=== PATIENT | male | born 1975 | race Caucasian/White ===

== ENCOUNTER 2018-07-18 03:14 | Day surgery (SDC) | payer OTHER ==
[~2018-07-18] VITALS: Ht 172.7 cm; Wt 81.9 kg
--- OUTSIDE RECORDS SUMMARY | 2018-07-18 03:23 | XMS REPORT ---
Author Author JOSE VILLALOBOS [facility] Address [address] [place] [address] Care Team Providers Care Director Of Environmental Services Name Role Phone JOSE VILLALOBOS Unavailable PROBLEMS Type Condition ICD9-CM Code [id number] Code Onset Dates Condition Status SNOMED Code Problem Constipation, unspecified constipation type K59.00 Active 26282626 Problem Screening examination for venereal disease V74.5 Active [id number] ALLERGIES No Known Allergies ENCOUNTERS Encounter Location Date Diagnosis [facility] [id number] [place] [phone] May, Right flank pain R10.9 and Constipation, unspecified constipation type K59.00 [facility] [id number] [place] [address] [phone] Sep, Dental examination Z01.20 [facility] [address] [id number] August, Dental examination Z01.20 and Dental caries K02.9 [facility] [id number] [place] [phone] Jul, Dental examination Z01.20 [facility] [id number] [place] [phone] Jul, [facility] [id number] [place] [phone] Jul, [facility] [address] [phone] Nov, [facility] [id number] [place] [phone] Nov, [facility] [address] [phone] Nov, IMMUNIZATIONS No Known Immunizations SOCIAL HISTORY Never Assessed REASON FOR VISIT kidney pain Pt c/o lower back pain which radiates around R side, states has had the pain for a couple of weeks, [facility] Was put on Ranitidine and tylenol yesterday, pt reports worsening of pain, describes as a burning pain MARIA LUZ Ortega PLAN OF CARE Activity Details Follow Up prn Reason: VITAL SIGNS Height 68 in 2017-06-15 Weight 181.2 lbs 2017-06-15 Temperature 97.1 degrees Fahrenheit 2017-06-15 Heart Rate 72 bpm 2017-06-15 Respiratory Rate 20 2017-06-15 BMI 27.55 kg/m2 2017-06-15 Blood pressure systolic 138 mmHg 2017-06-15 Blood pressure diastolic 82 mmHg 2017-06-15 MEDICATIONS Medication Instructions Dosage Frequency Start Date End Date Duration Status Metronidazole 500 mg take 4 tablets by Oral route once 1 time per day for 1 day Nov, Not-Taking Etodolac 500 mg Nov, Active RESULTS Name Result Date Reference Range UA LONG DIP (IN HOUSE) Lot # [id number] Exp date [id number] Clarity clear Color yellow Odor none GLU negative QUENTIN negative KET negative SG 1.025 BLO tr-lysed pH 5.5 Protein negative URO 0.2 NIT negative ROCCO negative Lot # [id number] Exp date 07/2017 Xray : KUB (IN HOUSE) 2017-06-15 PROCEDURES Procedure Date Ordered Result Body Site X-RAY EXAM ABDOMEN 1 VIEW Jun 15, 2017 URINALYSIS, AUTO, W/O SCOPE Jun 15, 2017 INSTRUCTIONS MEDICATIONS ADMINISTERED No Known Medications MEDICAL (GENERAL) HISTORY Type Description Date Medical History back trouble
--- OUTSIDE RECORDS SUMMARY | 2018-07-18 03:24 | XMS REPORT ---
Author HAJA Day Organization [facility] Address [address] [place] [address] Care Team Providers Care Room Service Waiter/Waitress Name Role Phone HAJA SULLIVAN Unavailable PROBLEMS Type Condition ICD9-CM Code RRC98-IY Code Onset Dates Condition Status SNOMED Code Problem Screening examination for venereal disease V74.5 Active [id number] ALLERGIES No Known Allergies SOCIAL HISTORY Never Assessed PLAN OF CARE Activity Details Follow Up prn Reason:hygiene VITAL SIGNS Blood pressure systolic 147 mmHg 2016-08-31 Blood pressure diastolic 90 mmHg 2016-08-31 MEDICATIONS Medication Instructions Dosage Frequency Start Date End Date Duration Status Dalton 5-325 MG Orally every 6 hrs 1 tablet as needed 6h 3 days Active Etodolac 500 mg Nov, Active RESULTS No Results PROCEDURES Procedure Date Ordered Result Body Site LTD ORAL EVALUATION - PROBLEM FOCUS August 31, 2016 EXTRAC ERUPTED TOOTH/EXPOSED ROOT August 31, 2016 IMMUNIZATIONS No Known Immunizations MEDICAL (GENERAL) HISTORY Type Description Date Medical History back trouble
--- OUTSIDE RECORDS SUMMARY | 2018-07-18 03:24 | XMS REPORT ---
Author Author RENATE MCCORD [facility] Address Unknown Care Team Providers Care Personal Financial Advisor Name Role Phone RENATE MCCORD Unavailable PROBLEMS Type Condition ICD9-CM Code ZAE16-BL Code Onset Dates Condition Status SNOMED Code Problem Constipation, unspecified constipation type K59.00 Active 93063444 Problem Screening examination for venereal disease V74.5 Active [id number] ALLERGIES No Known Allergies ENCOUNTERS Encounter Location Date Diagnosis [facility] [id number] [place] [phone] May, Right flank pain R10.9 and Constipation, unspecified constipation type K59.00 [facility] [id number] [place] [phone] Sep, Dental examination Z01.20 [facility] [id number] [place] [phone] August, Dental examination Z01.20 and Dental caries K02.9 [facility] [id number] [place] [phone] Jul, Dental examination Z01.20 [facility] [id number] [place] [phone] Jul, [facility] [id number] [place] [phone] Jul, [facility] [id number] [place] [phone] Nov, [facility] [id number] [place] [phone] Nov, [facility] [id number] [place] [phone] Nov, IMMUNIZATIONS No Known Immunizations SOCIAL HISTORY Never Assessed REASON FOR VISIT melvina PLAN OF CARE Activity Details Follow Up prn Reason:hygiene/filling VITAL SIGNS Blood pressure systolic 132 mmHg 2016-09-28 Blood pressure diastolic 87 mmHg 2016-09-28 MEDICATIONS Medication Instructions Dosage Frequency Start Date End Date Duration Status Etodolac 500 mg Nov, Active RESULTS No Results PROCEDURES Procedure Date Ordered Result Body Site LTD ORAL EVALUATION - PROBLEM FOCUS September 28, 2016 INTRAORL-PERIAPICAL 1 FILM [id number] September 28, 2016 BITEWING - SINGLE FILM September 28, 2016 INSTRUCTIONS MEDICATIONS ADMINISTERED No Known Medications MEDICAL (GENERAL) HISTORY Type Description Date Medical History back trouble
--- OUTSIDE RECORDS SUMMARY | 2018-07-18 03:24 | XMS REPORT ---
Author Author RENATE MCCORD [facility] Address Unknown Care Team Providers Care Re Recording Mixer Name Role Phone RENATE MCCORD Unavailable PROBLEMS Type Condition ICD9-CM Code VTG38-VN Code Onset Dates Condition Status SNOMED Code Problem Screening examination for venereal disease V74.5 Active [id number] ALLERGIES No Known Allergies SOCIAL HISTORY Never Assessed PLAN OF CARE Activity Details Follow Up prn Reason:pt will decide VITAL SIGNS Blood pressure systolic 141 mmHg 2016-08-10 Blood pressure diastolic 93 mmHg 2016-08-10 MEDICATIONS Medication Instructions Dosage Frequency Start Date End Date Duration Status Etodolac 500 mg Nov, Active Amoxicillin 500 MG Orally Three times a day 1 capsule 8h 7 days Active RESULTS No Results PROCEDURES Procedure Date Ordered Result Body Site LTD ORAL EVALUATION - PROBLEM FOCUS August 10, 2016 INTRAORL-PERIAPICAL 1 FILM 46635 August 10, 2016 BITEWING - SINGLE FILM August 10, 2016 IMMUNIZATIONS No Known Immunizations MEDICAL (GENERAL) HISTORY Type Description Date Medical History back trouble
[2018-07-18] MEDS ORDERED: NS IV 1000 ML 1,000 ML ONE (03:49)
[2018-07-18] MEDS ORDERED: NS IV 1000 ML 1,000 ML IV ONE (03:49)
[2018-07-18 03:57] LABS: BASOPHILS # (AUTO) 0.1 10^3/uL (0.0-0.1); BASOPHILS % (AUTO) 1 % (0-10); EOSINOPHILS # (AUTO) 0.3 10^3/uL (0.0-0.3); EOSINOPHILS % (AUTO) 2 % (0-10); HEMATOCRIT 47 % (40-54); HEMOGLOBIN 15.8 G/DL (13.3-17.7); LYMPHOCYTES % (AUTO) 13 % (12-44); MEAN CORPUSCULAR HEMOGLOBIN 29 PG (25-34); MEAN CORPUSCULAR HGB CONC 34 G/DL (32-36); MEAN CORPUSCULAR VOLUME 86 FL (80-99); MEAN PLATELET VOLUME 9.8 FL (7.4-10.4); MONOCYTES # (AUTO) 1.4 X 10^3 (0.0-1.0); MONOCYTES % (AUTO) 10 % (0-12); NEUTROPHILS # (AUTO) 11.4 X 10^3 (1.8-7.8); NEUTROPHILS % (AUTO) 75 % (42-75); PLATELET COUNT 269 10^3/uL (130-400); RED CELL DISTRIBUTION WIDTH 13.9 % (10.0-14.5); WHITE BLOOD COUNT 15.1 10^3/uL (4.3-11.0)
[2018-07-18 03:59] LABS: BILIRUBIN,URINE NEGATIVE (NEGATIVE); CLARITY,URINE CLEAR; COLOR,URINE YELLOW; GLUCOSE, URINE (UA) NEGATIVE (NEGATIVE); KETONES,URINE NEGATIVE (NEGATIVE); LEUKOCYTE ESTERASE ,URINE NEGATIVE (NEGATIVE); NITRITE,URINE NEGATIVE (NEGATIVE); PH,URINE 6 (5-9); PROTEIN,URINE NEGATIVE (NEGATIVE); UROBILINOGEN,URINE NORMAL (NORMAL)
[2018-07-18 04:15] LABS: ALANINE AMINOTRANSFERASE 42 U/L (0-55); ALBUMIN 4.6 GM/DL (3.2-4.5); ALKALINE PHOSPHATASE 83 U/L (40-136); BILIRUBIN,TOTAL 1.2 MG/DL (0.1-1.0); BUN/CREATININE RATIO 24; CARBON DIOXIDE 23 MMOL/L (21-32); CHLORIDE 107 MMOL/L (98-107); CREATININE SERUM 0.85 MG/DL (0.60-1.30); GFR ESTIMATED > 60; GLUCOSE 99 MG/DL (70-105); SODIUM 139 MMOL/L (135-145); TOTAL PROTEIN 7.2 GM/DL (6.4-8.2)
[2018-07-18 04:17] LABS: BACTERIA,URINE NEGATIVE /HPF; SQUAMOUS EPITHELIAL CELL,UR RARE /HPF
[2018-07-18 04:17] LABS: BAND NEUTROPHILS 6 %; EOSINOPHILS % (MANUAL) 2 %; LYMPHOCYTES % (MANUAL) 13 %; MONOCYTES % (MANUAL) 8 %; NEUTROPHILS % (MANUAL) 71 %; RBC MORPH NORMAL
[2018-07-18] MEDS ORDERED: IOHEXOL 350 MG/ML 100 ML (OMNIPAQUE 350) VIAL IV ONE (04:45)
--- NOTE | 2018-07-18 04:51 | ED Abdominal Pain ---
General Chief Complaint: Abdominal/GI Problems Stated Complaint: ABD PAIN Nursing Triage Note: PT AMB TO ROOM #5 W/O DIFFICULTY. A&OX4. C/O RT LOWER ABD DISCOMFORT. PT REPORTS DISCOMFORT BEGAN YESTERDAY MORNING APPROX 1100. REPORTS INCREASE IN DISCOMFORT AFTER EATING OR LAYING ON RT/LT SIDE. DENIES NAUSEA, VOMITING, OR URINARY SYMPTOMS. Sepsis Screen: No Definite Risk Source of Information: Patient Exam Limitations: No Limitations History of Present Illness Date Seen by Provider: Jul 18, 2018 Time Seen by Provider: 03:40 Initial Comments This 43-year-old gentleman presents to the emergency room with point pain and tenderness in the right lower quadrant that started about midmorning yesterday. He has had decreased appetite associated with the pain. Pain was worse after eating, especially supper last night. It does hurt to walk and ride in the car. He denies any urinary changes, nausea, vomiting, diarrhea, or constipation. His bowel movements have been very regular. His last bowel movement was at 18:00 last night. He took some Gas-X at home which was not helpful. He rates his pain as 4-6 out of 10. He is afebrile. Allergies and Home Medications Allergies Coded Allergies: No Known Drug Allergies (Unverified , 07/18/18) Patient Home Medication List Home Medication List Reviewed: Yes Review of Systems Review of Systems Constitutional: no symptoms reported EENTM: No Symptoms Reported Respiratory: No Symptoms Reported Cardiovascular: No Symptoms Reported Gastrointestinal: See HPI Genitourinary: No Symptoms Reported Musculoskeletal: no symptoms reported Skin: no symptoms reported Psychiatric/Neurological: No Symptoms Reported Endocrine: No Symptoms Reported Hematologic/Lymphatic: No Symptoms Reported Past Yddgact-Ugwbgg-Ixnmej Hx Past Med/Social Hx: Reviewed and Corrections made Patient Social History Alcohol Use: Rarely Uses Recreational Drug Use: No Smoking Status: Never a Smoker 2nd Hand Smoke Exposure: No Recent Foreign Travel: No Contact w/Someone Who Travel: No Recent Infectious Disease Expo: No Recent Hopitalizations: No Seasonal Allergies Seasonal Allergies: No Past Medical History Surgeries: Yes Abdominal (colonoscopy), Vasectomy Respiratory: No Cardiac: No Neurological: No Genitourinary: No Musculoskeletal: Yes Chronic Back Pain Endocrine: No HEENT: No Cancer: No Psychosocial: No Integumentary: No Blood Disorders: No Physical Exam Vital Signs Vital Signs - First Documented 07/18/18 03:42 Temp 96.7 Pulse 84 Resp 16 B/P (MAP) 132/102 (112) Pulse Ox 98 O2 Delivery Room Air Capillary Refill : Less Than 3 Seconds Height/Weight/BMI Height: 5'8.00" Weight: 180lbs. oz. 81.999815zm; BMI Method:Stated General Appearance: WD/WN HEENT: PERRL/EOMI, normal ENT inspection Neck: normal inspection Respiratory: lungs clear, normal breath sounds, no respiratory distress, no accessory muscle use Cardiovascular: regular rate, rhythm, no edema, no murmur Gastrointestinal: normal bowel sounds, soft; No distended; guarding; No rebound ; tenderness (point tenderness in the right lower quadrant with positive Rovsing sign) Extremities: normal inspection, no pedal edema Neurologic/Psychiatric: 911 emergency services dispatcher II-XII nml as tested, no motor/sensory deficits, alert, normal mood/affect, oriented x 3 Skin: normal color, warm/dry Progress/Results/Core Measures Results/Orders Lab Results Laboratory Tests Test 07/18/18 03:30 07/18/18 03:53 Range/Units White Blood Count 15.1 H 4.3-11.0 10^3/uL Red Blood Count 5.47 4.35-5.85 10^6/uL Hemoglobin 15.8 13.3-17.7 G/DL Hematocrit 47 40-54 % Mean Corpuscular Volume 86 80-99 FL Mean Corpuscular Hemoglobin 29 25-34 PG Mean Corpuscular Hemoglobin Concent 34 32-36 G/DL Red Cell Distribution Width 13.9 10.0-14.5 % Platelet Count 269 130-400 10^3/uL Mean Platelet Volume 9.8 7.4-10.4 FL Neutrophils (%) (Auto) 75 42-75 % Lymphocytes (%) (Auto) 13 12-44 % Monocytes (%) (Auto) 10 0-12 % Eosinophils (%) (Auto) 2 0-10 % Basophils (%) (Auto) 1 0-10 % Neutrophils # (Auto) 11.4 H 1.8-7.8 X 10^3 Lymphocytes # (Auto) 2.0 1.0-4.0 X 10^3 Monocytes # (Auto) 1.4 H 0.0-1.0 X 10^3 Eosinophils # (Auto) 0.3 0.0-0.3 10^3/uL Basophils # (Auto) 0.1 0.0-0.1 10^3/uL Neutrophils % (Manual) 71 % Lymphocytes % (Manual) 13 % Monocytes % (Manual) 8 % Eosinophils % (Manual) 2 % Band Neutrophils 6 % Blood Morphology Comment NORMAL Sodium Level 139 135-145 MMOL/L Potassium Level 4.0 3.6-5.0 MMOL/L Chloride Level 107 98-107 MMOL/L Carbon Dioxide Level 23 21-32 MMOL/L Anion Gap 9 5-14 MMOL/L Blood Urea Nitrogen 20 H 7-18 MG/DL Creatinine 0.85 0.60-1.30 MG/DL Estimat Glomerular Filtration Rate > 60 BUN/Creatinine Ratio 24 Glucose Level 99 70-105 MG/DL Calcium Level 9.0 8.5-10.1 MG/DL Corrected Calcium 8.5-10.1 MG/DL Total Bilirubin 1.2 H 0.1-1.0 MG/DL Aspartate Amino Transf (AST/SGOT) 19 5-34 U/L Alanine Aminotransferase (ALT/SGPT) 42 0-55 U/L Alkaline Phosphatase 83 40-136 U/L C-Reactive Protein High Sensitivity 0.27 0.00-0.50 MG/DL Total Protein 7.2 6.4-8.2 GM/DL Albumin 4.6 H 3.2-4.5 GM/DL Urine Color YELLOW Urine Clarity CLEAR Urine pH 6 5-9 Urine Specific Ethel 1.020 1.016-1.022 Urine Protein NEGATIVE NEGATIVE Urine Glucose (UA) NEGATIVE NEGATIVE Urine Ketones NEGATIVE NEGATIVE Urine Nitrite NEGATIVE NEGATIVE Urine Bilirubin NEGATIVE NEGATIVE Urine Urobilinogen NORMAL NORMAL MG/DL Urine Leukocyte Esterase NEGATIVE NEGATIVE Urine RBC (Auto) NEGATIVE NEGATIVE Urine RBC NONE /HPF Urine WBC NONE /HPF Urine Squamous Epithelial Cells RARE /HPF Urine Crystals NONE /LPF Urine Bacteria NEGATIVE /HPF Urine Casts NONE /LPF Urine Mucus NEGATIVE /LPF Urine Culture Indicated NO My Orders Orders - DESTIN ARORA MD Saline Lock/Iv-Start (07/18/18 03:49) Ns Iv 1000 Ml (Sodium Chloride 0.9%) (07/18/18 03:49) Cbc With Automated Diff (07/18/18 03:49) Comprehensive Metabolic Panel (07/18/18 03:49) Hs C Reactive Protein (07/18/18 03:49) Ua Culture If Indicated (07/18/18 03:49) Ns Iv 1000 Ml (Sodium Chloride 0.9%) (07/18/18 03:49) Manual Differential (07/18/18 03:30) Ct Abd/Pelv W (Appendicitis) (07/18/18 04:29) Iohexol Injection (Omnipaque 350 Mg/Ml 1 (07/18/18 04:45) Medications Given in ED Current Medications Medications Dose Ordered Sig/Yao Route Start Time Stop Time Status Last Admin Dose Admin Iohexol 100 ml ONCE ONCE IV 07/18/18 04:45 07/18/18 05:29 DC 07/18/18 04:47 100 ML Sodium Chloride 1,000 ml @ 0 mls/hr Q0M ONCE IV 07/18/18 03:49 07/18/18 03:51 DC 07/18/18 03:50 0 MLS/HR Vital Signs/I&O 07/18/18 03:42 Temp 96.7 Pulse 84 Resp 16 B/P (MAP) 132/102 (112) Pulse Ox 98 O2 Delivery Room Air Blood Pressure Mean: 112 Progress Progress Note #1: Time: 04:51 Progress Note Patient was seen and examined. IV fluids are infusing. UA was unremarkable. Leukocytosis was noted on the CBC. CT scan was ordered to assess for possible acute appendicitis. Patient declined pain medication. Progress Note #2: Time: 05:[address] scan revealed acute appendicitis. Case was discussed with Dr. Quinonez. He would like to patient admitted to be worked into the OR schedule. Diagnostic Imaging Diagonstic Imaging: CT Plain Films/CT/US/NM/MRI: abdomen, pelvis Comments CT abdomen and pelvis viewed by me and [employer] report reviewed. Acute uncomplicated appendicitis noted. Departure Communication (Admissions) Time/Spoke to Admitting Phy: 05:20 Dr. Quinonez Impression Primary Impression: Acute appendicitis Qualified Codes: K35.30 - Acute appendicitis with localized peritonitis, without perforation or gangrene Disposition: ADMITTED INPATIENT Condition: Stable Admissions Decision to Admit Reason: Admit from ER (General) Decision to Admit/Date: Jul 18, 2018 Time/Decision to Admit Time: 05:00 Departure-Patient Inst. Referrals: NO,LOCAL PHYSICIAN (PCP/Family) Primary Care Physician DESTIN ARORA MD Jul 18, 2018 04:51
[2018-07-18 06:00] VITALS: BP 142/90
[2018-07-18] MEDS ORDERED: ONDANSETRON 4 MG/2 ML (SDV) Z0FRAN IV PRN (06:45)
[2018-07-18] MEDS ORDERED: fentaNYL INJECTION 100 MCG/2 ML AMP IV PRN (06:45)
[2018-07-18] MEDS ORDERED: CATHETER FLUSH 10 ML SYR IV PRN (06:45)
[2018-07-18] MEDS: NS IV 1000 ML 1,000 ML IV SCH ×2 (06:48→15:15)
[2018-07-18 08:00] VITALS: BP 131/86
[2018-07-18] MEDS ORDERED: FLU QUADRIvalent (5+ YOA) 2018-2019 (AFLURIA) 0.5 ML IM ONE (08:00)
[2018-07-18] MEDS ORDERED: GLYCOPYRROLATE 0.2 MG/ML (ROBINUL) 2 ML VIAL ONE (08:36)
[2018-07-18] MEDS ORDERED: SEVOFLURANE (ULTANE) 15 ML INHAL SOLN ONE (08:36)
[2018-07-18] MEDS ORDERED: proPOfol 200 MG/20 ML (DIPRIVAN) VIAL IV ONE (08:36)
[2018-07-18] MEDS ORDERED: DEXAMETHASONE 10 MG/ML (DECADRON) 1 ML VIAL ONE (08:36)
[2018-07-18] MEDS ORDERED: ROCURONIUM 10 MG/ML 5 ML SYRINGE IV ONE (08:36)
[2018-07-18] MEDS ORDERED: ONDANSETRON 4 MG/2 ML (SDV) Z0FRAN ONE (08:36)
[2018-07-18] MEDS ORDERED: LIDOCAINE PF 2% 5 ML (XYLOCAINE) VIAL ONE (08:36)
[2018-07-18] MEDS ORDERED: NEOSTIGMINE 1 MG/ML 5 ML SYRINGE ONE (08:36)
[2018-07-18] MEDS ORDERED: MIDAZOLAM 2 MG/2 ML (VERSED) VIAL ONE (08:37)
[2018-07-18] MEDS ORDERED: fentaNYL INJECTION 100 MCG/2 ML AMP ONE ×2 (08:37→09:45)
[2018-07-18] MEDS ORDERED: LIDOCAINE/EPI 1%-1:100,000 (XYLOCAINE) 20ML ONE (08:39)
[2018-07-18] MEDS ORDERED: BUPIVACAINE 0.5% 30 ML (SENSORCAINE) VIAL ONE (08:39)
--- NOTE | 2018-07-18 08:52 | Diagnostic Imaging Report ---
INDICATION: Right upper quadrant pain, elevated white count. EXAMINATION: CT abdomen/pelvis with contrast dated 07/18/2018. TECHNIQUE: Multiple contiguous axial images were obtained through the abdomen and pelvis after the administration of intravenous contrast. FINDINGS: The appendix is dilated measuring almost 1 cm in thickness with surrounding inflammatory change noted. No significant free fluid or air is seen with no abscess formation at this time. The remaining bowel loops are unremarkable for acute abnormality. No free fluid in the pelvis. No acute abnormality is seen in the liver or spleen. Fatty infiltration throughout the liver is noted. The adrenal glands, pancreas, and gallbladder are normal in appearance. The kidneys demonstrate no acute abnormality. Tiny cystic change is noted on the left, too small for characterization. The lung bases are unremarkable. No acute osseous abnormality with sclerosis along the sacroiliac joints bilaterally, chronic in appearance. IMPRESSION: 1. Acute appendicitis as discussed with other incidental findings as above. 2. The findings agree with the preliminary report. Dictated by: Dictated on workstation # [id number]
[2018-07-18] MEDS ORDERED: ceFAZolin 2 GM IV Premixed 50 ML ONE (09:02)
--- NOTE | 2018-07-18 09:05 | History & Physical-Surgical ---
History of Present Illness History of Present Illness Reason for visit/HPI Surgery asked to assess pt regarding acute appendicitis. HPI per ED: This 43-year-old gentleman presents to the emergency room with point pain and tenderness in the right lower quadrant that started about midmorning yesterday. He has had decreased appetite associated with the pain. Pain was worse after eating, especially supper last night. It does hurt to walk and ride in the car. He denies any urinary changes, nausea, vomiting, diarrhea, or constipation. His bowel movements have been very regular. His last bowel movement was at 18:00 last night. He took some Gas-X at home which was not helpful. He rates his pain as 4-6 out of 10. He is afebrile. When I spoke with the patient this morning he stated the pain started around 9 or 10 a.m. yesterday morning. He was unable to eat any breakfast but then was a little full dinner but the full dinner made it feel worse. He had some nausea and tried to vomit, he thought that make him feel better but that did not help and he was unable to vomit. He denies ever having pain like this before. He describes the pain as a dull achy pain; with no radiation. He states he came in the emergency room cousin was not getting better. Not eating since last night. Date of Admission Jul 18, 2018 at 05:21 Time Seen by a Provider: 08:41 I consulted on this patient on 07/18/18 08:59 Attending Physician Evan Quinonez DO Admitting Physician No,Local Physician Consult Allergies and Home Medications Allergies Coded Allergies: No Known Drug Allergies (Unverified , 07/18/18) Patient Home Medication List Home Medication List Reviewed: Yes Past Vojmdbl-Lukahy-Plaqve Hx Patient Social History Alcohol Use: Rarely Uses Recreational Drug Use: No Smoking Status: Never a Smoker 2nd Hand Smoke Exposure: No Recent Foreign Travel: No Contact w/Someone Who Travel: No Recent Infectious Disease Expo: No Recent Hopitalizations: No Seasonal Allergies Seasonal Allergies: No Surgeries History of Surgeries: Yes Surgeries: Abdominal (colonoscopy), Vasectomy Respiratory History of Respiratory Disorde: No Cardiovascular History of Cardiac Disorders: No Neurological History of Neurological Disord: No Genitourinary History of Genitourinary Disor: No Musculoskeletal History of Musculoskeletal Dis: Yes Musculoskeletal Disorders: Chronic Back Pain Endocrine History of Endocrine Disorders: No HEENT History of HEENT Disorders: No Cancer History of Cancer: No Psychosocial History of Psychiatric Problem: No Integumentary History of Skin or Integumenta: No Blood Transfusions History of Blood Disorders: No Family Medical History Significant Family History: CAD Over 55 Years Old (Father), Hypertension Review of Systems Constitutional: No chills, No diaphoresis, No dizziness; malaise EENTM: No blurred vision, No eye pain, No mouth pain, No mouth swelling, No epistaxis, No throat swelling Respiratory: No cough, No dyspnea on exertion, No hemoptysis Cardiovascular: No chest pain, No edema, No palpitations Gastrointestinal: abdominal pain; No dysphagia, No jaundice; nausea Genitourinary: No dysuria, No frequency, No hematuria Musculoskeletal: No back pain, No gout, No joint pain, No joint swelling Skin: No change in color, No change in hair/nails Psychiatric/Neurological: Denies Anxiety, Denies Depressed, Denies Paresthesia , Denies Seizure, Denies Tingling pt denies any abnormal bleeding or bruising, no history of heat or cold intolerance Physical Exam Vital Signs Vital Signs - First Documented 07/18/18 03:42 Temp 96.7 Pulse 84 Resp 16 B/P (MAP) 132/102 (112) Pulse Ox 98 O2 Delivery Room Air Capillary Refill : Less Than 3 Seconds Height, Weight, BMI Height: 5'8.00" Weight: 180lbs. 8.0oz. [id number]; 27.4 BMI Method:Stated General Appearance: No Apparent Distress, WD/WN Eyes: Bilateral Eye PERRL, Bilateral Eye EOMI HEENT: Pharynx Normal, Moist Mucous Membranes; No Pale Conjunctivae (L), No Pale Conjunctivae (R), No Scleral Icterus (L), No Scleral Icterus (R) Neck: Full Range of Motion, Normal Inspection, Non Tender, Supple Respiratory: Chest Non Tender, Lungs Clear, Normal Breath Sounds, No Accessory Muscle Use, No Respiratory Distress Cardiovascular: Regular Rate, Rhythm, No Edema, No Murmur Gastrointestinal: No Organomegaly, Soft; No Mass, No Rebound; Tenderness (RLQ) Back: No CVA Tenderness, No Vertebral Tenderness Extremity: Normal Capillary Refill, Normal Inspection, Normal Range of Motion, Non Tender, No Calf Tenderness, No Pedal Edema Neurologic/Psychiatric: Alert, Oriented x3, No Motor/Sensory Deficits, Normal Mood/Affect, obiee architect II-XII Norm as Tested Skin: Normal Color, Warm/Dry Lymphatic: No Adenopathy (neck, axilla or groin) Data Review Labs Laboratory Tests 07/18/18 03:30: White Blood Count 15.1H, Red Blood Count 5.47, Hemoglobin 15.8, Hematocrit 47, Mean Corpuscular Volume 86, Mean Corpuscular Hemoglobin 29, Mean Corpuscular Hemoglobin Concent 34, Red Cell Distribution Width 13.9, Platelet Count 269, Mean Platelet Volume 9.8, Neutrophils (%) (Auto) 75, Lymphocytes (%) (Auto) 13, Monocytes (%) (Auto) 10, Eosinophils (%) (Auto) 2, Basophils (%) (Auto) 1, Neutrophils # (Auto) 11.4H, Lymphocytes # (Auto) 2.0, Monocytes # (Auto) 1.4H, Eosinophils # (Auto) 0.3, Basophils # (Auto) 0.1, Neutrophils % (Manual) 71, Lymphocytes % (Manual) 13, Monocytes % (Manual) 8, Eosinophils % (Manual) 2, Band Neutrophils 6, Blood Morphology Comment NORMAL, Sodium Level 139, Potassium Level 4.0, Chloride Level 107, Carbon Dioxide Level 23, Anion Gap 9, Blood Urea Nitrogen 20H, Creatinine 0.85, Estimat Glomerular Filtration Rate > 60, BUN/Creatinine Ratio 24, Glucose Level 99, Calcium Level 9.0, Corrected Calcium , Total Bilirubin 1.2H, Aspartate Amino Transf (AST/SGOT) 19, Alanine Aminotransferase (ALT/SGPT) 42, Alkaline Phosphatase 83, C-Reactive Protein High Sensitivity 0.27, Total Protein 7.2, Albumin 4.6H 07/18/18 03:53: Urine Color YELLOW, Urine Clarity CLEAR, Urine pH 6, Urine Specific [place] 1.020, Urine Protein NEGATIVE, Urine Glucose (UA) NEGATIVE, Urine Ketones NEGATIVE, Urine Nitrite NEGATIVE, Urine Bilirubin NEGATIVE, Urine Urobilinogen NORMAL, Urine Leukocyte Esterase NEGATIVE, Urine RBC (Auto) NEGATIVE, Urine RBC NONE, Urine WBC NONE, Urine Squamous Epithelial Cells RARE, Urine Crystals NONE , Urine Bacteria NEGATIVE, Urine Casts NONE, Urine Mucus NEGATIVE, Urine Culture Indicated NO Assessment/Plan Assessment/Plan Admission Diagonsis Acute Appendicitis Admission Status: Observation Assessment/Plan Acute Appendicitis Patient came in last night with right lower quadrant pain, elevated white count and a CAT scan reported as enlarged and inflamed appendix. Radiologist read as acute appendicitis. Plan is to give patient antibiotics IV fluids pain control and take him to the OR for laparoscopic appendectomy possible open. I discussed the procedure with the patient all risks and complicationsp; not limited to pain, bleeding, infection, scar and damage to bowel or need for further procedure. Patient understood all these and all questions answered to his satisfaction. We also discussed postoperative care; when he could go to work, when he could lift and when he could drive. Clinical Quality Measures DVT/VTE Risk/Contraindication: Risk Factor Score Per Nursin RFS Level Per Nursing on Admit: 1=Low/No VTE PPX EVAN QUINONEZ DO Jul 18, 2018 09:05
[2018-07-18] MEDS ORDERED: ceFAZolin 2 GM IV Premixed 50 ML IV NR (09:15)
--- NOTE | 2018-07-18 09:20 | NUR ---
PATIENT OFF FLOOR AT THIS TIME/ FOR PROCEDURE.
[2018-07-18] MEDS ORDERED: LACTATED RINGERS 1,000 ML IV SCH (09:30)
--- NOTE | 2018-07-18 09:37 | NUR ---
THIS RN PULLED 2 GM BAG OF ANCEF FOR THE OR CREW FOR THEM TO TAKE FOR ONCALL TO OR.
--- NOTE | 2018-07-18 10:07 | Progress Note-Post Operative ---
Post-Operative Progess Note Surgeon (s)/Form Tamper Operator (s) Surgeon LUZ MARIA REYES DO Form Tamper Operator: none Pre-Operative Diagnosis Acute Appy Post-Operative Diagnosis same Procedure & Operative Findings Date of Procedure 07/18/18 Procedure Performed/Findings Lap appy Anesthesia Type GET Estimated Blood Loss Estimated blood loss (mL): scant Specimens/Packing Specimens Removed LUZ MARIA Ludwig DO Jul 18, 2018 10:07
[2018-07-18] MEDS ORDERED: ACHD5005 PO (10:08)
--- NOTE | 2018-07-18 10:09 | Discharge Inst-Surgical ---
Discharge Inst-Surgical Depart Medication/Instructions New, Converted or Re-Newed RX: RX Given to Pt/Family Patient Instructions Follow up Appt: Make appointment for 1 week. [phone] Instructions: No lifting greater than 20 pounds. No strenuous activity. May shower in 24 hours, no tub bath or soaking. Use incentive spirometer at home as directed. No Smoking Skin/Wound Care: May remove bandages in am. You need to leave the Dermabond on incision it will fall off on it's own. Symptoms to Report: Appetite Changes, Extremity Discoloration, Numbness/Tingling, Swelling Increased , Bleeding Excessive, Eyesight Changes, Pain Increased, Urine Color Change, Constipation(Persistent), Fever over 101 degree F, Pain/Pressure in chest, Urinating Difficulty, Cough Up/Vomit Blood, Heart Beat Irreg/Pounding, Pain/ Pressure in jaw, Cramps in feet or legs, Lightheadedness, Pain/Pressure in shoulder, Diarrhea(Persistent), Memory Changes Suddenly, Questions/Concerns, Weight gain consecutive days, Dizziness/Fainting, Nausea/Vomiting, Shortness of Breath, Weight gain over 2 pounds If questions or concerns contact your physician Or seek help at emergency department. Activity Activity as Tolerated: Yes Activity Instructions: Avoid Stress to Incision Driving Instructions: No Driving/Refer to Dr. Lopez Discharge Diet: No Restrictions Diet After 24 Hours: Clear Liquid if Nauseous If Any Problems/Questions/Issu: Contact Your Physician, Go to Emergency Room Skin/Wound Care Infection Signs and Symptoms: Increased Redness, Foul Odor of Wound, Increased Drainage, Skin Itchy or Has a Rash, Increased Swelling, Temperature Above 101 F Wound Care Comment: heating pad to shoulder or neck tonight for pain Bathing Instructions: Shower Stitches/[place]/Dermabond Dis: Dermabond Ice Pack: Ice On and Off Site (as needed for pain) LUZ MARIA REYES DO Jul 18, 2018 10:09
[2018-07-18] MEDS ORDERED: HYDROmorphone 2 MG/ML VIAL (DILAUDID) IV ONE (10:30)
[2018-07-18] MEDS ORDERED: morphine INJ 10 MG/ML 1ML (SYR OR VIAL) IVP ONE ×2 (10:30→11:15)
[2018-07-18] MEDS ORDERED: ONDANSETRON 4 MG/2 ML (SDV) Z0FRAN IVP PRN (10:30)
--- NOTE | 2018-07-18 11:02 | NUR ---
PATIENT BACK TO THIS FLOOR AT THIS TIME VIA CART, ACCOMPANIED BY RECOVERY STAFF.
[2018-07-18] MEDS ORDERED: HYDROcodone/APAP 5 MG/325 MG (LORTAB) TAB PO PRN (11:30)
[2018-07-18 12:00] VITALS: BP 116/65
[2018-07-18 16:00] VITALS: BP 114/58
--- NOTE | 2018-07-18 18:33 | OPERATIVE REPORT ---
DATE OF SERVICE: PREOPERATIVE DIAGNOSIS: Acute appendicitis. POSTOPERATIVE DIAGNOSIS: Acute appendicitis. PROCEDURE: Laparoscopic appendectomy. SURGEON: Evan Quinonez DO. COLLECTOR OF AQUARIUM SPECIMENS: None. ANESTHESIA: General endotracheal tube. SPECIMEN: Appendix. BLOOD LOSS: Scant. FLUIDS: Per anesthesia. POSTOPERATIVE CONDITION: Stable. INDICATION FOR PROCEDURE: The patient is a 43-year-old male who is having right lower quadrant pain, that would not go away, came in the emergency room, had an elevated white count. CAT scan showed acute appendicitis. FINDINGS: The patient had acute appendicitis and the right inguinal hernia. PROCEDURE NOTE: After informed consent was obtained, the patient was brought to the operating room, placed on the table in supine position. He was sterilely prepped and draped in normal fashion. Local lidocaine used for infiltrate the skin above the umbilicus. Made an incision with #11 blade, carried down through the skin and subcutaneous tissue and deepened down to subcutaneous tissue with Bovie electrocautery down to fascia. Fascia incised with Bovie electrocautery, then bluntly entered the abdomen, swept a finger around, placed 0 Vicryl [id number] suture and placed 11 mm trocar port under direct visualization. Created pneumoperitoneum then placed 2 more ports in normal fashion using local lidocaine, 11 blade for stab incision and Versed system, all done under direct visualization, one suprapubically and one left lower quadrant. The patient then placed slightly Trendelenburg and rotated left. We moved the omentum out of the away able to visualize the appendix. There was some fibrinous material and it was inflamed. Took a picture of a right inguinal hernia, looked like he may have had little bit direct and indirect then grasped the appendix and then start coming across the mesoappendix with the LigaSure, clamping, coagulating and transecting and in this fashion and stepwise fashion coming across the mesoappendix coming across the appendiceal artery and then freeing of the appendix was just attached to the cecum. Switched to a 5 mm camera, brought Endo-BLAYNE in and placed across the base of appendix, clamped and fired, thereby transecting the appendix, placed a bag in the abdomen, placed the appendix in the bag and then removed this through a supraumbilical incision. Placed supraumbilical port back in. Looked around, copiously irrigated with normal saline, suctioned this out and then at this point, placed the patient back in supine, removed all ports under direct visualization allowed pneumoperitoneum to escape, closed supraumbilical incision with 0 Vicryl suture previously placed. Copiously irrigated all incisions normal saline. I then closed the 2 small 5 mm incision with a single interrupted 4-0 undyed Monocryl subcuticular stitch. Closed the supraumbilical incision with 3 interrupted 4-0 undyed Monocryl subcuticular stitches. Area was cleaned and dried and Dermabond and then Band-Aids placed. The patient tolerated procedure and transferred to recovery room in stable condition. Sponge, instrument and needle count correct at the end of the case. Job ID: [id number] DocumentID: [id number] Dictated Date: 07/18/2018 16:26:17 [employer] Date: 07/18/2018 18:33:07 Dictated By: DO ALLAN CHAUDHRY
--- NOTE | 2018-07-19 07:27 | Anesthesia-General Post-Op ---
General Patient Condition Mental Status/LOC: Same as Preop Cardiovascular: Satisfactory Nausea/Vomiting: Absent Respiratory: Satisfactory Pain: Controlled Complications: Absent Post Op Complications Complications None Follow Up Care/Instructions Patient Instructions None needed. Anesthesia/Patient Condition Patient Condition Patient is doing well, no complaints, stable vital signs, no apparent adverse anesthesia problems. No complications reported per nursing. HITESH ESCAMILLA CRNA Jul 19, 2018 07:27
== END 2018-07-18 16:45 | disposition home or self-care (01) ==
LOC: EDUNIT# 03:14 → ER 03:19 → SDC 05:21 → UNDOADMIN 05:21 → 4TH 05:21 → SDC 16:45 → UNDODISIN 16:45
PROVIDERS: ATTEND Surgery
DX: K35.80 Unspecified acute appendicitis (principal); K40.90 Unilateral inguinal hernia, without obstruction or gangrene, not specified as recurrent
CPT/HCPCS: 36415; 74177; 80053; 81000; 85007; 85027; 86141; 87081; 94664; 96360